=== PATIENT | female | born 1960 | race Caucasian/White ===

== ENCOUNTER 2016-07-15 16:53 | Emergency (ER) | payer MEDICARE, SELFPAY ==
[~2016-07-15 16:53] MED LIST: ACETAMINOPHEN325 MG PO; ADVAIR 250-501 EACH IH; ALBUTEROL S3 ML/VIAL NEB; ASPIR 8181 MG PO; BROVANA15 MCG/2 M IH; CARAFATE1 GM PO; CARDIZEM CD180 MG PO; CARDIZEM30 MG PO; COMBIVENT RESPIM4 GM IH; IPRAT-ALBUT 0.5-3 ML IH; K-DUR20 MEQ PO; KLONOPIN1 MG PO; LACTULOSE10 GM/151 PO; LEVAQUIN750 MG PO; LIPITOR20 MG PO; LIPITOR40 MG PO; LORTAB 10-3251 EACH PO; NICOTINE TRANSD21 MG TD; NICOTINE TRANSD21 MG TOP; PREDNISONE10 MG PO; PRILOSEC40 MG PO; PULMICORT0.5 MG/2 M IH; SILVADENE20 GM TOP; TESSALON PERLE100 MG PO; ZITHROMAX500 MG PO
== END 2016-07-15 19:53 | disposition home or self-care (01) ==
LOC: ER 16:53
DX: J44.1 Chronic obstructive pulmonary disease with (acute) exacerbation (principal); K21.9 Gastro-esophageal reflux disease without esophagitis; I10 Essential (primary) hypertension; F17.210 Nicotine dependence, cigarettes, uncomplicated
CPT/HCPCS: 36415; 87502; 94640; 96374

== ENCOUNTER 2016-10-11 02:24 | Emergency (ER) | payer MEDICARE, OTHER | END 2016-10-11 07:35 | disposition home or self-care (01) | LOC: ER 02:24 | DX: A41.9 Sepsis, unspecified organism (principal); J18.9 Pneumonia, unspecified organism; R79.89 Other specified abnormal findings of blood chemistry; R74.8 Abnormal levels of other serum enzymes; K21.9 Gastro-esophageal reflux disease without esophagitis; I10 Essential (primary) hypertension; J44.9 Chronic obstructive pulmonary disease, unspecified; F17.210 Nicotine dependence, cigarettes, uncomplicated; Z90.710 Acquired absence of both cervix and uterus; Z79.82 Long term (current) use of aspirin; Z79.899 Other long term (current) drug therapy; Z88.1 Allergy status to other antibiotic agents | CPT/HCPCS: 36415; 51702; 80307; 96361; 96365; 96367; 96375; G0480; J0456; J0696; Q9967 ==